=== PATIENT | male | born 1950 | race Caucasian/White ===

== ENCOUNTER 2017-01-17 11:47 | Emergency (ER) | payer OTHER ==
[2017-01-17 12:44] LABS: ALBUMIN 4.4 gm/dL (3.4-5.0); ALKALINE PHOSPHATASE 65 U/L (50-136); ALT/SGPT 21 U/L (7.53-40.17); AST/SGOT 18 U/L (6.66-35.34); BILIRUBIN,TOTAL 0.21 mg/dL (0.0-1.0); BLOOD UREA NITROGEN 27 mg/dL (7-18); CALCIUM 9.5 mg/dL (8.7-10.7); CARBON DIOXIDE 25 mmol/L (21-32); CREATINE KINASE 144 U/L (35-232); GLUCOSE,RANDOM 168 mg/dL (70-99); SODIUM 135 mmol/L (136-145); TOTAL PROTEIN 7.4 gm/dL (6.4-8.2)
== END 2017-01-17 14:15 | disposition home or self-care (01) ==
LOC: ER 11:47
PROVIDERS: Family Medicine
DX: M54.9 Dorsalgia, unspecified (principal); I70.298 Other atherosclerosis of native arteries of extremities, other extremity; E11.9 Type 2 diabetes mellitus without complications; I10 Essential (primary) hypertension; Z79.899 Other long term (current) drug therapy; Z79.891 Long term (current) use of opiate analgesic; Z79.84 Long term (current) use of oral hypoglycemic drugs
CPT/HCPCS: 36415; 71275; 72128; 80053; 82550; 82553; 93005; 99070; 99284-25; J7040; Q9967